=== PATIENT | male | born 1995 | race Caucasian/White ===

== ENCOUNTER 2023-03-02 23:14 | Emergency (ER) | payer MEDICAID, SELFPAY ==
[2023-03-02 23:16] VITALS: BP 121/77; PULSE 90; RESP 20; TEMP 36.6; O2SAT 96; BMI 26.5
--- NOTE | 2023-03-02 23:28 | EX.ED.VIS.PS ---
HPI HPI - Psych History of Present Illness Chief Complaint: Suicidal Narrative Narrative: 27-year-old male clearly intoxicated presenting with suicidal ideations. He states that he has been drinking tonight but has not had that much. He states he had 4 shots and 2 beers. He denies drug use. Patient states that he has been fighting with his . He believes she is cheating on him. He states I want to if she will not talk to me. He states that all of his friends are on her side and feel like he has been unreasonable. He states he loves his kids but is with his does not love him and want to be with him and he wants to . He has no specific plan. He was brought in by police tonight out of concern that he was suicidal. [facility] Medical History Asthma Medical History no medical history Home Medications NK 03/02/23 [History Last Taken Unknown] Allergy/AdvReac Type Severity Reaction Status Date / Time No Known Allergies Allergy Verified 03/02/23 23:18 Surgical History no surgical history Social History Smoking Status: Current some day smoker tobacco type: cigarettes ROS ROS ED Constitutional Constitutional ED: Denies chills, fever(s) or sweats Eyes Eyes: Denies blurry vision or change in vision ENT ENT ED: Denies ear pain or sore throat Cardiovascular Cardiovascular: Denies chest pain, palpitations or racing heartbeat Respiratory/Chest Respiratory/Chest: Denies cough, dyspnea or sputum Gastrointestinal Gastrointestinal: Denies abdominal pain, constipation, diarrhea, nausea or vomiting Genitourinary Genitourinary ED: Denies dysuria, hematuria or urinary frequency Musculoskeletal Musculoskeletal: Denies arthralgias, myalgias or neck pain Integumentary Denies abscess, Abrasions or rash Neurologic Neurologic: Denies headache(s), paresthesias or weakness Psychiatric Psychiatric: Reports depression, suicidal ideation and suicidal thoughts; Denies anxiety Endocrine Endocrinology: Denies polydipsia or polyuria EXAM Physical Exam Const Vital Signs: 03/02/23 23:16 03/03/23 00:15 03/03/23 01:00 Temperature 97.8 F Temperature Source Oral Pulse Rate 90 Respiratory Rate 20 H 16 16 Blood Pressure 121/77 H Blood Pressure Mean 91 Pulse Ox 96 Oxygen Delivery Method Room Air 03/03/23 02:00 03/03/23 03:00 03/03/23 04:00 Temperature Temperature Source Pulse Rate Respiratory Rate 18 18 18 Blood Pressure Blood Pressure Mean Pulse Ox Oxygen Delivery Method 03/03/23 05:00 03/03/23 06:00 Temperature 98.1 F Temperature Source Oral Pulse Rate 88 Respiratory Rate 18 18 Blood Pressure 131/86 H Blood Pressure Mean 101 Pulse Ox 96 Oxygen Delivery Method Room Air Positive unkempt General Appearance ED: unkempt, irritable and NAD; Negative for pallor HEENT Reports moist mucous membranes normocephalic and atraumatic Eyes PERRL Resp normal respiratory effort and clear to auscultation bilaterally GI non-tender and non-distended Neuro oriented x3, CN's II-XII intact bilaterally, no sensory deficits noted and deep tendon reflexes 2+ bilaterally Jevon Coma Scale: document GCS findings Spontaneous Obeys Commands Oriented 15 Sensorium / Orientation: alert Psych Negative for denies hallucinations or denies homicidal ideation Appearance: unkempt and disheveled Attitude: agitated and hostile Activity / Motor Behavior: avoids eye contact Speech: loud Mood & Affect: irritable, tearful and hostile affect Thought Process: illogical Thought Content: suicidality and No homicidality Attention / Concentration: concentration grossly impaired Memory / Cognition: memory grossly impaired Insight: poor Judgement: poor Skin General Skin Exam: Negative for jaundice or pallor MDM MDM MDM Narrative Medical decision making narrative: Patient presenting with suicidal ideation. Patient apparently believes his is cheating on him and they got an altercation. I do not have her phone number although he did want me to talk to her. Patient is very intoxicated and ended up falling asleep. Screening lab work was obtained and is otherwise unremarkable with exception of an alcohol of 244 and a potassium of 3.0. I attempted to replete this orally however the patient is annoyed. He states I do not want it. He refuses to take the potassium. He given his 's phone number. Ailin Davis [phone]. I attempted to call her at about 2:30 AM this morning. The call was sent to [employer]. I left a return phone call number and have not heard back from her. Awaiting repeat alcohol level in the morning. Drug screen positive for cocaine and cannabinoids. Repeat alcohol this morning is 98. Patient medically clear. Awaiting crisis evaluation. Patient will be signed out to incoming ED physician for monitoring. Impression: 1. Suicidal thoughts 2. EtOH intoxication 3. Cocaine abuse Lab Data Attestation: I reviewed the patient's lab results. Labs: Laboratory Results - last 24 hr 03/02/23 03/03/23 03/03/23 23:30 05:45 07:00 WBC 7.8 RBC 5.33 Hgb 15.8 Hct 47.3 MCV 88.7 MCH 29.6 MCHC 33.4 RDW Std Deviation 44.5 H RDW Coeff of Vitor 13.6 Plt Count 358 MPV 10.0 Immature Gran % (Auto) 1.200 H Neut % (Auto) 57.9 Lymph % (Auto) 28.0 [place] % (Auto) 9.5 Eos % (Auto) 2.1 Baso % (Auto) 1.3 H Absolute Neuts (auto) 4.5 Absolute Lymphs (auto) 2.18 Nucleated RBC % 0 Sodium 140 Potassium 3.0 L Chloride 109 H Carbon Dioxide 24.0 Anion Gap 7 BUN 14 Creatinine 1.24 Estim Creat Clear Calc 93.21 Est GFR (MDRD) Af Amer 90 Est GFR (MDRD) Non-Af 75 BUN/Creatinine Ratio 11.3 Glucose 118 H Calcium 8.9 Total Bilirubin 0.50 AST 13 L ALT 19 Alkaline Phosphatase 75 Total Protein 7.7 Albumin 4.1 Globulin 3.6 Albumin/Globulin Ratio 1.1 Urine Opiates Screen NEGATIVE Urine Methadone Screen NEGATIVE Ur Barbiturates Screen NEGATIVE Ur Phencyclidine Scrn NEGATIVE Ur Amphetamines Screen NEGATIVE MDMA (Ecstasy) Screen NEGATIVE U Benzodiazepines Scrn NEGATIVE Urine Cocaine Screen POSITIVE H U Cannabinoids Screen POSITIVE H Ur Drug Screen Comment Ethyl Alcohol 244.0 98.0 Discharge Plan Triage Chief Complaint: Suicidal ED Provider: Erickson Dickson Dx/Rx/DC Orders Prescriptions: No Action NK Primary Care Provider: Care Physician,No Primary Referrals: Care Physician,No Primary [Primary Care Provider] -
[2023-03-02 23:36] LABS: Absolute Lymphocyte Count 2.18 X10^3/uL (0.83-4.51); Absolute Neutrophil Count 4.5 X10^3/uL (2.0-7.7); Basophil% 1.3 % (0-1); Eosinophil# 0.16 X10^3/uL; Eosinophils% 2.1 % (0-5); Hematocrit 47.3 % (40-54); Hemoglobin 15.8 g/dL (13.0-16.5); Lymphocyte # 2.18 X10^3/ul (0.83-4.51); Mean Corp Hgb Conc 33.4 g/dL (32-36); Mean Corpuscular Hgb 29.6 pg (27.0-32.0); Mean Corpuscular Volume 88.7 fL (80-94); Monocyte# 0.74 X10^3/uL; Monocyte% 9.5 % (0-10); NRBC Flagged by Analyzer 0 % (0-5); Neutrophil # 4.51 X10^3/uL (2.7-7.7); Neutrophil % 57.9 % (47-70); Platelet Count 358 K/mm3 (150-450); RBC Distribution Width CV 13.6 % (11.6-14.6); RBC Distribution Width SD 44.5 fl (35.1-43.9); Red Blood Count 5.33 M/mm3 (4.6-6.2); White Blood Count 7.8 K/mm3 (4.4-11.0)
[2023-03-03] VITALS (8 sets, daily range): BP systolic 125–131; BP diastolic 74–86; PULSE 78–88; RESP 14–18; TEMP 36.7; O2SAT 96–98
[2023-03-03 00:19] LABS: ALB/GLOB Ratio 1.1 RATIO (0.9-2.4); AST(SGOT) 13 U/L (15-37); Alanine Aminotransfer ALT/SGPT 19 U/L (16-61); Albumin, Serum 4.1 g/dL (3.2-5.0); Alkaline Phosphatase 75 U/L (45-117); Anion Gap 7 (5-15); BUN 14 mg/dL (7-18); BUN/Creat Ratio 11.3 RATIO (10-20); Calcium,Total 8.9 mg/dL (8.5-10.1); Chloride 109 mmol/L (98-107); Creatinine, Serum 1.24 mg/dL (0.70-1.30); EST Glomerular Filtration Rate 75 mL/min (>60); Est Glom Filt Rate - Afr Amer 90 mL/min (>60); Estimated Creatinine Clearance 93.21 ml/min; Globulin 3.6 g/dL (2.2-4.2); Glucose 118 mg/dL (74-106); Protein, Total 7.7 g/dL (6.4-8.2); Sodium Level 140 mmol/L (136-145)
--- NOTE | 2023-03-03 02:42 | ED.RN ---
attempted to administer Potassium to patient. Pt refusing to take potassium. Education provided that patient needs to have supplement replaced to move forward with crisis, pt states it doesn't matter and he just wants to . Dr Dickson notified and he attempted to talk with patient. Pt did give phone number for . Continues to refuse to take potassium or give urine sample.
[2023-03-03] MEDS: Potassium Chloride Oral Tablet 20 MEQ 40 MEQ PO (05:49)
--- NOTE | 2023-03-03 05:51 | ED.RN ---
Pt up to RR and informed need of urine sample. Pt yelling at staff and stating he's not going to give it, he wants to go home. attempted to educate patient on process for crisis to see patient because of comments he was making when he came in. pt became more agitated and threatening staff and threatening to run out. pt did provide urine sample however when back in room, patient aggravated and making threats to hit staff. PD called at this time, security at bedside. Again educated patient on process to have patient evaluated. Pt pacing in room stating he just wants to talk to his kids. Phone provided for patient to try and call . Pt attempted but went to voicemail.
[2023-03-03 06:19] LABS: Amphetamine Urine VISTA NEGATIVE (<1000 ng/mL); Barbiturate Urine VISTA NEGATIVE (< 200 ng/mL); Benzodiazepine Urine VISTA NEGATIVE (< 200 ng/mL); Cocaine Urine VISTA POSITIVE (< 300 ng/mL); Ecstacy Urine VISTA NEGATIVE (< 500 ng/mL); Methadone Urine VISTA NEGATIVE (< 300 ng/mL); PCP Urine VISTA NEGATIVE (< 25 ng/mL); THC Urine VISTA POSITIVE (< 50 ng/mL); Vista UDS pH Range 4
--- NOTE | 2023-03-03 07:46 | NURSING ---
FAXED PAPERWORK TO CRISIS AND NOTIFIED THEM WELL.
--- NOTE | 2023-03-03 09:11 | ED.RN ---
rakan d/c per dr. de la torre and crisis. safety plan home.
== END 2023-03-03 09:38 | disposition home or self-care (01) ==
PROVIDERS: Emergency Provider Student in an Organized Health Care Education/Training Program; Visit Provider Student in an Organized Health Care Education/Training Program
DX: F32.A Depression, unspecified (principal); F14.10 Cocaine abuse, uncomplicated; F10.129 Alcohol abuse with intoxication, unspecified; R45.851 Suicidal ideations; Y90.8 Blood alcohol level of 240 mg/100 ml or more; J45.909 Unspecified asthma, uncomplicated; F17.210 Nicotine dependence, cigarettes, uncomplicated
CPT/HCPCS: 80053; 80307; 82077; 85025; 87811; 99283